=== PATIENT | male | born 1955 | race Caucasian/White ===

== ENCOUNTER → 2017-12-06 | Outpatient (CLI) | payer MEDICARE, BC ==
[~2017-12-06] MED LIST: ASPI81TA82 PO; BACL20TA PO; CARV6.252 PO; DICL1GEL TOP; DICY1TAB26 PO; GAS-80CH CHEW; HYDR10SO PO; LISI-360 PO; LOMO PO; NEUR300C PO; PACE200T4 PO; PARO40TA PO; WARF-20 PO; WARF-60 PO
== END ==
LOC: HRSP 11:47
PROVIDERS: ATTEND Internal Medicine Interventional Cardiology
DX: R06.00 Dyspnea, unspecified (principal)
CPT/HCPCS: 36600; 82805; 94060; 94726; 94729